=== PATIENT | male | born 1995 | race Caucasian/White ===

== ENCOUNTER 2017-10-25 06:03 | Emergency (ER) | payer OTHER ==
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
[2017-10-25] MEDS ORDERED: Lidocaine 1% 50 ML MDV INJECT ONE (06:59)
--- NOTE | 2017-10-25 07:27 | CR ---
Right forearm: Two views of the right forearm were obtained. Comparison: No previous study. Soft tissue swelling is seen within the mid forearm. No fracture, dislocation or other bony abnormality is seen. Impression: 1. Soft tissue swelling. No bony abnormality is identified on two-view right forearm study. Diagnostic code #2
== END 2017-10-25 07:40 | disposition home or self-care (01) ==
LOC: JD.ED 06:03
DX: S61.412A Laceration without foreign body of left hand, initial encounter (principal); S50.811A Abrasion of right forearm, initial encounter; V89.2XXA Person injured in unspecified motor-vehicle accident, traffic, initial encounter
CPT/HCPCS: 12001; 73090-26-RT; 73090-RT; 99284-25